=== PATIENT | male | born 1945 | race Two or more races ===

== ENCOUNTER → 2025-04-02 | Outpatient (CLI) | payer OTHER, MEDICAID, SELFPAY ==
--- NOTE | 2025-04-02 08:51 | XR_ITS ---
Examination: Lumbar spine, 5 views Technique: Lumbar spine AP, lateral, coned lateral lower lumbar spine, bilateral obliques 5 views Exam date and time: April 02, 2025 0851 hours INDICATIONS: Low back pain chronic more severe the last 2 weeks FINDINGS: Moderate osteopenia. Lumbar levoscoliosis 15 degrees Advanced diffuse facet arthropathy Prominent lumbar spondylosis Advanced diffuse lumbar degenerative disc disease IMPRESSION: Advanced diffuse lumbar degenerative disc disease with significant spinal stenosis
== END | disposition home or self-care (01) ==
LOC: CDIM 08:42
PROVIDERS: PCP Nurse Practitioner; Referring Provider Nurse Practitioner; Visit Provider Nurse Practitioner
DX: M51.360 Other intervertebral disc degeneration, lumbar region with discogenic back pain only (principal); M48.061 Spinal stenosis, lumbar region without neurogenic claudication
CPT/HCPCS: 72110